=== PATIENT | female | born 1975 | race Hispanic/Latino ===

== ENCOUNTER 2017-10-01 10:40 | Emergency (ER) | payer SELFPAY ==
[2017-10-01] MEDS ORDERED: Ketorolac Tromethamine 30 MG/ML VIAL ONE (11:21)
[2017-10-01 11:47] LABS: #Basophils 0.1 thou/uL (0.0-0.2); #Eosinphils 0.1 thou/uL (0.0-0.7); #Lymphocytes 1.5 thou/uL (1.20-3.40); #Monocytes 0.4 thou/uL (0.11-0.59); #Neutrophils 2.9 thou/uL (1.40-6.50); %Basophils 1.6 % (0.0-1.0); %Eosinophils 2.7 % (0.0-10.0); %Lymphocytes 29.8 % (21.0-51.0); %Monocytes 8.5 % (0.0-10.0); %Neutrophils 57.3 % (42.0-75.0); Hemoglobin 9.1 g/dL (12.0-16.0); Mean Corpuscular HGB CONC 29.5 g/dL (32.0-36.0); Mean Corpuscular Hemoglobin 19.3 pg (27.0-31.0); Mean Corpuscular Volume 65.5 fl (81.0-99.0); Mean Platelet Volume 9.5 fL (7.4-10.4); Platelet Count 430 thou/uL (130-400); Red Blood Cell (RBC) Count 4.73 mill/uL (4.20-5.40)
[2017-10-01 12:05] LABS: ALT (SGPT) 23 U/L (8-55); AST (SGOT) 20 U/L (5-34); Albumin 4.1 g/dL (3.5-5.0); Alkaline Phosphatase 60 U/L (40-150); Anion Gap 12 mmol/L (10-20); BUN (Urea Nitrogen) 5 mg/dL (7.0-18.7); Bilirubin, Total 0.3 mg/dL (0.2-1.2); Calc. Creatinine Clearance 0 mL/min (70-130); Calcium 9.6 mg/dL (7.8-10.44); Carbon Dioxide 24 mmol/L (22-29); Chloride 108 mmol/L (98-107); Estimated GFR-MDRD Greater than 90; Globulin 3.5 g/dL (2.4-3.5); Glucose 100 mg/dL (70-105); Protein, Total 7.6 g/dL (6.0-8.3); Sodium 140 mmol/L (136-145)
[2017-10-01 12:24] LABS: Hypochromia MODERATE=16-30 cells (100X) (0-5/hpf); MDiff Complete? YES; Microcytosis MODERATE=15-30 cells (100X) (0-5/hpf); Ovalocytes MODERATE= 6-15 cells (100X) (0-1/hpf); PLT Morphology Comment Appears Increased; Polychromasia SLIGHT = 2-3 cells (100X) (0-2/hpf); Reflex for Review?? YES
== END 2017-10-01 12:20 | disposition home or self-care (01) ==
LOC: ERS 10:40
DX: B34.9 Viral infection, unspecified (principal); F17.210 Nicotine dependence, cigarettes, uncomplicated; Z71.6 Tobacco abuse counseling
CPT/HCPCS: 80053; 85025; 85060; 96372; 99406; J1885

== ENCOUNTER 2019-05-19 20:21 | Emergency (ER) | payer SELFPAY ==
--- NOTE | 2019-05-19 21:01 | RAD ---
Right wrist 3 views HISTORY: Right wrist injury. FINDINGS: Minimal medial displacement of the distal fragment of an oblique distal ulnar shaft fractur e is present. Distal radius is intact. Scaphoid waist and ulnar styloid are unremarkable. IMPRESSION: Right distal ulnar shaft fracture.
--- NOTE | 2019-05-19 21:06 | RAD ---
RIGHT FOREARM TWO VIEWS: 05/19/19 INDICATION: Fall with right forearm pain. FINDINGS: There is a transverse oriented mildly displaced fracture involving the distal ulnar shaft with dorsal and radial displacement of the distal fracture fragment one cortex width. Radial capitellar alignmen t appears within normal limits. IMPRESSION: Distal ulnar shaft fracture. POS: [facility]
[2019-05-19] MEDS ORDERED: HYDROcodone/Acetaminophen 10/325 mg Tablet ONE (22:08)
== END 2019-05-19 23:24 | disposition home or self-care (01) ==
LOC: ERS 20:21
DX: S52.601A Unspecified fracture of lower end of right ulna, initial encounter for closed fracture (principal); F17.210 Nicotine dependence, cigarettes, uncomplicated; W22.8XXA Striking against or struck by other objects, initial encounter
CPT/HCPCS: 29125

== ENCOUNTER 2019-06-02 19:25 | Emergency (ER) | payer SELFPAY ==
[2019-06-02] MEDS ORDERED: Ketorolac Tromethamine 30 MG/ML VIAL ONE (20:08)
--- NOTE | 2019-06-02 20:26 | RAD ---
EXAM: 2 views of the right forearm HISTORY: Right arm fracture. Reevaluation COMPARISON: 05/19/2019 FINDINGS: There is a transverse fracture through the distal ulna. A minimal amount of developing call us is seen. No radial fracture is seen.. No soft tissue swelling is seen. No degenerative changes are seen in the wrist or elbow. IMPRESSION: Healing distal ulnar fracture
== END 2019-06-02 20:42 | disposition home or self-care (01) ==
LOC: ERS 19:25
DX: S52.601D Unspecified fracture of lower end of right ulna, subsequent encounter for closed fracture with routine healing (principal); F17.210 Nicotine dependence, cigarettes, uncomplicated; W20.8XXD Other cause of strike by thrown, projected or falling object, subsequent encounter
CPT/HCPCS: 29125; 96372; J1885

== ENCOUNTER 2023-01-20 18:31 | Emergency (ER) | payer SELFPAY ==
[2023-01-20] MEDS ORDERED: Dexamethasone 10 MG/ML VIAL ONE (18:45)
[2023-01-20] MEDS ORDERED: Ketorolac Tromethamine 30 MG/ML VIAL ONE (18:45)
[2023-01-20 20:21] LABS: SARS-CoV-2 NAA Rapid Test Not Detected (NotDetected)
== END 2023-01-20 21:05 | disposition home or self-care (01) ==
LOC: ERS 18:31
DX: J02.9 Acute pharyngitis, unspecified (principal); F17.210 Nicotine dependence, cigarettes, uncomplicated
CPT/HCPCS: 70360; 87081; 87430; 96372; J1100; J1885

== ENCOUNTER 2023-11-10 14:49 | Inpatient (IN) | payer OTHER, SELFPAY ==
[2023-11-10 15:32] LABS: #Eosinphils 0.2 thou/uL (0.0-0.7); #Monocytes 0.6 thou/uL (0.11-0.59); #Neutrophils 3.1 thou/uL (1.40-6.50); %Basophils 0.8 % (0.0-1.0); %Eosinophils 3.1 % (0.0-10.0); %Lymphocytes 26.2 % (21.0-51.0); %Monocytes 10.7 % (0.0-10.0); %Neutrophils 58.8 % (42.0-75.0); Hematocrit 26.3 % (36.0-47.0); Hemoglobin 6.3 g/dL (12.0-16.0); Mean Corpuscular Hemoglobin 14.4 pg (27.0-31.0); Mean Corpuscular Volume 60.3 fl (78.0-98.0); Mean Platelet Volume 10.1 fL (7.4-10.4); Platelet Count 478 10x3/uL (130-400); Red Blood Cell (RBC) Count 4.36 mill/uL (4.20-5.40); White Blood Cell (WBC) Count 5.2 10x3/uL (4.8-10.8)
[2023-11-10] MEDS ORDERED: Aspirin Chewable 81 MG TAB ONE (15:48)
[2023-11-10] MEDS ORDERED: Morphine 4 MG/ML VIAL ONE (15:48)
[2023-11-10 15:52] LABS: ALT (SGPT) 12 U/L (8-55); AST (SGOT) 17 U/L (5-34); Albumin 4.3 g/dL (3.5-5.0); Alkaline Phosphatase 62 U/L (40-110); Anion Gap 13 mmol/L (10-20); BUN (Urea Nitrogen) 9 mg/dL (7.0-18.7); Bilirubin, Total 0.3 mg/dL (0.2-1.2); Calc. Creatinine Clearance 0 mL/min (70-130); Calcium 9.3 mg/dL (7.8-10.44); Carbon Dioxide 24 mmol/L (22-29); Chloride 104 mmol/L (98-107); Estimated GFR 97; Globulin 3.1 g/dL (2.4-3.5); Glucose 100 mg/dL (70-105); Potassium 4.1 mmol/L (3.5-5.1); Protein, Total 7.4 g/dL (6.0-8.3); Sodium 137 mmol/L (136-145)
[2023-11-10 15:54] LABS: Troponin I 0.061 ng/mL (< 0.028)
[2023-11-10 16:10] LABS: Anisocytosis SLIGHT = 6-15 cells HPF (0-5); CellaVision Operator ID LAB.KB; Hypochromia SLIGHT = 6-15 cells HPF (0-5); Microcytosis MODERATE=15-30 cells HPF (0-5); Ovalocytes SLIGHT = 2-5 cells HPF (0-1); Platelet Adequacy Comment Platelets Increased; Polychromasia SLIGHT = 2-3 cells HPF (0-2); Reflex for Review?? YES
[2023-11-10] MEDS ORDERED: Ondansetron ODT 4 MG TAB PO PRN (17:17)
[2023-11-10] MEDS ORDERED: Acetaminophen 325 MG TAB PO PRN (17:17)
[2023-11-10] MEDS ORDERED: Ondansetron PF 4 MG/2 ML Vial IVP PRN (17:17)
[2023-11-10] MEDS ORDERED: Acetaminophen 650 MG Suppository PR PRN (17:17)
[2023-11-10 18:00] LABS: Iron 9 ug/dL (50-170); Iron Binding Capacity, Total 463 mcg/dL (265-497); Magnesium 1.7 mg/dL (1.6-2.6)
[2023-11-10 18:20] LABS: Ferritin 3.29 ng/mL (10-291); Thyroid Stimulating Hormone 1.1473 uIU/mL (0.35-4.94)
[2023-11-10 18:45] LABS: Troponin I 0.102 ng/mL (< 0.028)
[2023-11-10 20:41] VITALS: BMI 26.4
[2023-11-10] MEDS: Pantoprazole 40 MG VIAL IVP SCH (22:02)
[2023-11-10 22:21] LABS: Troponin I 0.111 ng/mL (< 0.028)
[2023-11-11] MEDS: Iron, Sodium Ferric Gluconate 125 MG in Sodium Chloride 0.9% 100 ML IVPB SCH ×2 (01:41→03:29)
[2023-11-11 04:34] LABS: #Basophils 0.1 thou/uL (0.0-0.2); #Eosinphils 0.3 thou/uL (0.0-0.7); #Monocytes 0.7 thou/uL (0.11-0.59); #Neutrophils 3.4 thou/uL (1.40-6.50); %Basophils 0.8 % (0.0-1.0); %Eosinophils 4.8 % (0.0-10.0); %Lymphocytes 28.4 % (21.0-51.0); %Monocytes 11.2 % (0.0-10.0); %Neutrophils 54.5 % (42.0-75.0); Hematocrit 28.8 % (36.0-47.0); Hemoglobin 7.5 g/dL (12.0-16.0); Mean Corpuscular Hemoglobin 16.3 pg (27.0-31.0); Platelet Count 427 10x3/uL (130-400); RBC Distribution Width 23.5 % (11.5-14.5); Red Blood Cell (RBC) Count 4.59 mill/uL (4.20-5.40); White Blood Cell (WBC) Count 6.2 10x3/uL (4.8-10.8)
[2023-11-11 05:11] LABS: Cardiac Risk 3.2 (Less than 4.5)
[2023-11-11 05:12] LABS: Troponin I 0.099 ng/mL (< 0.028)
[2023-11-11 05:13] LABS: Mean Corpuscular Volume 62.7 fl (78.0-98.0)
[2023-11-11 07:36] LABS: Hematocrit 28.5 % (36.0-47.0); Hemoglobin 7.2 g/dL (12.0-16.0)
[2023-11-11] MEDS: GoLYTELY 4,000 ml Bottle PO SCH (18:53)
[2023-11-11 19:15] LABS: Amphetamine Detected (NotDetected); Barbiturates Screen Not Detected (NotDetected); Benzodiazepine Screen Not Detected (NotDetected); Cocaine Metabolite Screen Detected (NotDetected); Methadone Not Detected (NotDetected); Methamphetamine Detected (NotDetected); Opiate Screen Detected (NotDetected); Oxycodone Screen Not Detected (NotDetected); Phencyclidine (PCP) Not Detected (NotDetected); THC/Cannabinoid Screen Not Detected (NotDetected); Tricyclic Screen Not Detected (NotDetected)
[2023-11-12 17:49] LABS: Hematocrit 35.1 % (36.0-47.0); Hemoglobin 9.4 g/dL (12.0-16.0)
[2023-11-12] MEDS: GoLYTELY 4,000 ml Bottle PO SCH (19:30)
[2023-11-13] MEDS ORDERED: Propofol 500 MG/50 ML VIAL ONE (07:36)
[2023-11-13] MEDS ORDERED: Midazolam HCl 2 mg/2 ml Vial ONE (07:36)
[2023-11-13] MEDS: GoLYTELY 4,000 ml Bottle PO SCH (16:25)
[2023-11-14] MEDS ORDERED: Lidocaine 1% PF 5 ML VIAL ONE (07:40)
[2023-11-14] MEDS ORDERED: PROPOFOL 60 ML ONE (07:40)
[2023-11-14] MEDS ORDERED: Midazolam HCl 2 mg/2 ml Vial ONE (07:58)
[2023-11-14] MEDS ORDERED: HYDROmorphone 2 MG/ML VIAL SLOW IVP PRN (08:19)
[2023-11-14] MEDS ORDERED: Promethazine HCl 25 MG/ML VIAL IM PRN (08:19)
[2023-11-14] MEDS ORDERED: Ondansetron HCl/PF 4 MG/2 ML Vial IVP PRN (08:19)
[2023-11-14] MEDS ORDERED: Meperidine HCl/PF 25 MG/ML VIAL SLOW IVP PRN (08:19)
[2023-11-14] MEDS ORDERED: Morphine Sulfate 2 MG/ML SYRINGE SLOW IVP PRN (08:19)
[2023-11-14 10:41] VITALS: TEMP 97.5
[2023-11-14 11:47] VITALS: BP 126/88
== END 2023-11-14 12:21 | disposition home or self-care (01) | DRG 811 ==
LOC: ERS 14:49 → 2SW 17:22 → OBSVTOIN 17:22
PROVIDERS: ADMIT Family Medicine; ATTEND Internal Medicine
PROC: 30233N1 Transfusion of Nonautologous Red Blood Cells into Peripheral Vein, Percutaneous Approach (ICD-10-PCS; 2023-11-10)
PROC: 0DB98ZX Excision of Duodenum, Via Natural or Artificial Opening Endoscopic, Diagnostic (ICD-10-PCS; 2023-11-13)
PROC: 0DBH8ZZ Excision of Cecum, Via Natural or Artificial Opening Endoscopic (ICD-10-PCS; principal; 2023-11-14)
DX: D50.9 Iron deficiency anemia, unspecified (principal); I21.4 Non-ST elevation (NSTEMI) myocardial infarction; K21.9 Gastro-esophageal reflux disease without esophagitis; Z87.81 Personal history of (healed) traumatic fracture; F17.210 Nicotine dependence, cigarettes, uncomplicated; Z83.3 Family history of diabetes mellitus; Z80.0 Family history of malignant neoplasm of digestive organs; Z71.6 Tobacco abuse counseling; F19.10 Other psychoactive substance abuse, uncomplicated
CPT/HCPCS: 36415; 36430; 71045; 80053; 80061; 80306; 82607; 82728; 83540; 83550; 83735; 84443; 84484; 85014; 85018; 85025; 85060; 86850; 86900; 86901; 88305; 93005; 93306; 96374; C9113; J2250; J2270; J2704; J2916; J3490; P9016